=== PATIENT | male | born 1960 | race Caucasian/White ===

== ENCOUNTER → 2021-09-18 | Day surgery (SDC) | payer OTHER ==
[~2021-09-18] VITALS: Ht 177.8 cm; Wt 83.6 kg
[~2021-09-18] MED LIST: LIPITOR 10MG TA10 MG PO
== END | disposition home or self-care (01) ==
LOC: FAS 10:30
DX: M75.01 Adhesive capsulitis of right shoulder (principal); Z88.5 Allergy status to narcotic agent; Z79.899 Other long term (current) drug therapy
CPT/HCPCS: 97162; 97530-GP; J1040; J2250; J2704; J2795; J3010; J7120